=== PATIENT | female | born 2000 | race Caucasian/White ===

== ENCOUNTER → 2020-05-18 | Outpatient (CLI) | payer OTHER | LOC: LAB 12:39 | DX: R30.0 Dysuria (principal) ==

== ENCOUNTER 2020-09-17 11:45 | Emergency (ER) | payer OTHER ==
[2020-09-17] MEDS ORDERED: SERTRALINE HYD100 MG PO (12:08)
[2020-09-17] MEDS ORDERED: METHYLPHENIDATE36 M1 PO (12:08)
[2020-09-17] MEDS ORDERED: BUSPAR 15MG TAB15 MG PO (12:08)
[2020-09-17 13:32] VITALS: BP 101/79
== END 2020-09-17 13:34 | disposition home or self-care (01) ==
LOC: ED 11:45
DX: S06.0X0A Concussion without loss of consciousness, initial encounter (principal); F41.9 Anxiety disorder, unspecified; F32.9 Major depressive disorder, single episode, unspecified; F98.8 Other specified behavioral and emotional disorders with onset usually occurring in childhood and adolescence; Z88.8 Allergy status to other drugs, medicaments and biological substances; Z79.899 Other long term (current) drug therapy; W22.8XXA Striking against or struck by other objects, initial encounter; Y92.009 Unspecified place in unspecified non-institutional (private) residence as the place of occurrence of the external cause

== ENCOUNTER → 2021-12-21 | Outpatient (CLI) | payer OTHER ==
[~2021-12-21] MED LIST: BUSPAR 15MG TAB15 MG PO; METHYLPHENIDATE36 M1 PO; SERTRALINE HYD100 MG PO
== END ==
LOC: LAB 17:29
DX: R50.9 Fever, unspecified (principal); Z20.822 Contact with and (suspected) exposure to COVID-19

== ENCOUNTER 2022-02-14 08:58 | Emergency (ER) | payer OTHER ==
[2022-02-14 09:59] LABS: BASO # 0.03 K/mm3 (0.02-0.10); EOS # 0.26 K/mm3 (0.04-0.40); EOS % 3.2 % (1.0-5.0); HEMATOCRIT 40.2 % (37.0-47.0); HEMOGLOBIN 13.1 g/dL (12.5-16.0); LYMPH# 2.44 K/mm3 (1.50-4.00); MEAN CELL VOLUME 89 fl (78-100); MEAN CORPUSCULAR HEMOGLOBIN 29 pg (27-31); MEAN CORPUSCULAR HGB CONC 33 g/dL (33-37); MONO # 0.29 K/mm3 (0.20-0.80); NEU # 5.02 K/mm3 (1.40-6.50); PLATELET COUNT 308 K/mm3 (130-400); RED BLOOD COUNT 4.54 M/mm3 (4.10-5.30); RED CELL DISTRIBUTION WIDTH 13.9 % (11.5-14.5); WHITE BLOOD COUNT 8.1 K/mm3 (4.8-10.8)
[2022-02-14 10:09] LABS: ALBUMIN 4.2 g/dL (3.5-5.0); POTASSIUM 4.4 mmol/L (3.5-5.1)
[2022-02-14 10:12] LABS: TOTAL PROTEIN 7.5 g/dL (6.4-8.3)
[2022-02-14 10:13] LABS: TOTAL BILIRUBIN 0.5 mg/dL (0.2-1.2)
[2022-02-14 10:19] LABS: URINE APPEARANCE CLOUDY; URINE COLOR LT YELLOW
[2022-02-14 10:20] LABS: URINE BILIRUBIN NEGATIVE (NEGATIVE); URINE BLOOD NEGATIVE (NEGATIVE); URINE GLUCOSE NEGATIVE (NEGATIVE); URINE KETONE NEGATIVE (NEGATIVE); URINE LEUKOCYTE ESTERASE NEGATIVE (NEGATIVE); URINE NITRATE NEGATIVE (NEGATIVE); URINE PROTEIN(semi-quant) NEGATIVE (NEGATIVE); URINE UROBILINOGEN NORMAL (NORMAL)
[2022-02-14 11:53] VITALS: BP 121/89
== END 2022-02-14 11:41 | disposition home or self-care (01) ==
LOC: ED 08:58
PROVIDERS: Nurse Practitioner
DX: N83.202 Unspecified ovarian cyst, left side (principal); K62.5 Hemorrhage of anus and rectum; F17.210 Nicotine dependence, cigarettes, uncomplicated
CPT/HCPCS: Q9967

== ENCOUNTER 2024-01-16 15:56 | Emergency (ER) | payer BC ==
[~2024-01-16] VITALS: Ht 152.4 cm; Wt 82.6 kg
[~2024-01-16 15:56] MED LIST changes: +ATIVAN0.5 MG PO; +INVEGA3 MG; +NEXPLANON68 MG ID
[2024-01-16] MEDS ORDERED: SEROQUEL300 M1 PO (16:07)
[2024-01-16 16:34] LABS: BASO # 0.02 K/mm3 (0.02-0.10); EOS # 0.43 K/mm3 (0.04-0.40); EOS % 5.7 % (1.0-5.0); HEMATOCRIT 38.9 % (37.0-47.0); HEMOGLOBIN 12.7 g/dL (12.5-16.0); MEAN CELL VOLUME 89 fl (78-100); MEAN CORPUSCULAR HEMOGLOBIN 29 pg (27-31); MEAN CORPUSCULAR HGB CONC 33 g/dL (33-37); MEAN PLATELET VOLUME 8.9 fl (7.4-10.4); MONO # 0.32 K/mm3 (0.20-0.80); NEU # 4.08 K/mm3 (1.40-6.50); PLATELET COUNT 294 K/mm3 (130-400); RED BLOOD COUNT 4.35 M/mm3 (4.10-5.30); WHITE BLOOD COUNT 7.6 K/mm3 (4.8-10.8)
[2024-01-16 16:38] LABS: ALBUMIN 4.2 g/dL (3.5-5.0)
[2024-01-16 16:39] LABS: CALCIUM 9.7 mg/dL (8.3-10.5)
[2024-01-16 16:40] LABS: GLUCOSE 104 mg/dL (65-105); SODIUM 140 mmol/L (136-145)
[2024-01-16 16:42] LABS: TOTAL BILIRUBIN 0.2 mg/dL (0.2-1.2)
[2024-01-16 16:43] LABS: TOTAL PROTEIN 7.4 g/dL (6.4-8.3)
[2024-01-16 16:44] LABS: CARBON DIOXIDE 22 mmol/L (22-29)
[2024-01-16 16:45] LABS: AST-SGOT 21 U/L (5-34)
[2024-01-16 16:47] LABS: ALT/SGPT 24 U/L (0-55)
[2024-01-16 16:48] LABS: ACETAMINOPHEN < 1 ug/mL; ALCOHOL IN-HOUSE < 10 mg/dL (<10)
[2024-01-16 17:57] VITALS: BP 118/80
[2024-01-16 21:47] VITALS: BP 109/70
== END 2024-01-16 21:54 | disposition home or self-care (01) ==
LOC: ED 15:56
PROVIDERS: Physician Assistant
DX: F32.A Depression, unspecified (principal)

== ENCOUNTER → 2024-02-06 | Outpatient (CLI) | payer BC ==
[~2024-02-06] MED LIST changes: +SEROQUEL300 M1 PO
== END ==
LOC: RAD 16:34
DX: M25.532 Pain in left wrist (principal)